=== PATIENT | male | born 1995 | race Caucasian/White ===

== ENCOUNTER 2021-04-03 11:28 | Emergency (ER) | payer OTHER ==
[2021-04-03 11:37] VITALS: BP 116/65; PULSE 92; TEMP 98.4; BMI 26.1
[2021-04-04 13:06] LABS: SARS-CoV-2 NAA Detected (Not Detected)
== END 2021-04-03 15:19 | disposition home or self-care (01) ==
LOC: JER 11:28
DX: J06.9 Acute upper respiratory infection, unspecified (principal)
CPT/HCPCS: 74018-TC-FY; 87804; 87807; 99284-25; C9803; U0003; U0005